=== PATIENT | male | born 1985 | race Two or more races ===

== ENCOUNTER 2019-09-26 12:23 | Emergency (ER) | payer SELFPAY ==
[~2019-09-26] VITALS: Ht 180.3 cm; Wt 83.0 kg
[2019-09-26 12:28] VITALS: BP 157/84
[2019-09-26] MEDS ORDERED: IV NORMAL SALINE 1,000ML 1,000 ML IV ONE (12:45)
[2019-09-26] MEDS ORDERED: ONDANSETRON PF 4 MG/2 ML VIAL. IVP ONE (12:45)
[2019-09-26] MEDS ORDERED: IOHEXOL 300 MG/ML 75 ML VIAL. IV ONE ×2 (12:45)
[2019-09-26 13:05] LABS: BASO # 0.1 x10^3/uL (0.0-0.2); BASO % 1 % (0-3); EOS # 0.2 x10^3/uL (0.0-0.7); EOS % 3 % (0-3); HEMATOCRIT 33.5 % (39.0-53.0); HEMOGLOBIN 10.6 g/dL (13.0-17.5); LYMPH # 2.1 x10^3/uL (1.0-4.8); LYMPH % 31 % (24-48); MEAN CORPUSCULAR HEMOGLOBIN 22 pg (25-35); MEAN CORPUSCULAR HGB CONC 32 g/dL (31-37); MEAN CORPUSCULAR VOLUME 70 fL (79-100); MONO # 0.5 x10^3/uL (0.0-1.1); MONO % 8 % (0-9); NEUT # 3.8 x10^3uL (1.8-7.7); NEUT % 57 % (31-73); PLATELET COUNT 395 x10^3/uL (140-400); RED BLOOD COUNT 4.82 x10^6/uL (4.30-5.70); RED CELL DISTRIBUTION WIDTH 17.5 % (11.5-14.5); WHITE BLOOD COUNT 6.7 x10^3/uL (4.0-11.0)
[2019-09-26 13:18] LABS: CALCIUM 8.4 mg/dL (8.5-10.1); GFR 85.5; POTASSIUM 3.4 mmol/L (3.5-5.1)
[2019-09-26 13:22] LABS: ALBUMIN 3.7 g/dL (3.4-5.0); TOTAL BILIRUBIN 0.5 mg/dL (0.2-1.0); TOTAL PROTEIN 7.5 g/dL (6.4-8.2)
--- NOTE | 2019-09-26 13:42 | RAD ---
Examination: CT ABD PELV W/ IV CONTRST ONLY History: Reason: hematochezia, hx of "cancerous" polyps / Spl. Instructions: / History: Comparison/Correlation: None Findings: Axial images of the abdomen and pelvis were obtained following IV contrast. Sagittal and coronal reformatted were provided. Lung bases are clear. Liver, spleen, pancreas, adrenal glands, and right kidney are normal. Left renal superior pole low-attenuation lesion measuring 0.7 in diameter probably represents a cyst. No hydronephrosis. No ascites or pelvic free fluid. Appendix is normal. No bowel obstruction or extraluminal gas. No inflammatory findings. No enlarged abdominal or pelvic lymph nodes. No ascites or pelvic free fluid. Urinary bladder is unremarkable. No extraluminal gas. Bone islands involve the left iliac bone near the sacroiliac joint. Impression: No inflammatory processes identified. If GI bleed is a persistent concern, consider further characterization or other assessment. Very small to characterize lesion involving the left kidney which probably represents a cyst. Interval follow-up with MRI in 6 months is recommended to assess stability. PQRS Compliance Statement: One or more of the following individualized dose reduction techniques were utilized for this examination: 1. Automated exposure control 2. Adjustment of the mA and/or kV according to patient size 3. Use of iterative reconstruction technique Electronically signed by: Jewel Love MD (09/26/2019 1:39 PM) [id number]
[2019-09-26] MEDS ORDERED: HYDR25SU18 RC (13:50)
--- NOTE | 2019-09-26 13:51 | PHYS DOC ---
General Adult EDM: Chief Complaint: RECTAL BLEED HPI: HPI: Patient is a [age] year old [sex] who presents with [] Review of Systems: Review of Systems: Constitutional: Denies fever or chills Eyes: Denies redness or eye pain HENT: Denies nasal congestion or sore throat Respiratory: Denies cough or shortness of breath Cardiovascular: Denies chest pain or palpitations GI: Denies abdominal pain, nausea, or vomiting : Denies dysuria or hematuria Musculoskeletal: Denies back pain or joint pain Integument: Denies rash or skin lesions Neurologic: Denies headache, focal weakness or sensory changes Complete systems were reviewed and found to be within normal limits, except as documented in this note. Current Medications: Current Meds: Current Medications Medications (Trade) Dose Ordered Sig/Maury Start Time Stop Time Status Last Admin Dose Admin Iohexol (Omnipaque 300 Mg/ml) 75 ml 1X ONCE 09/26/19 12:45 09/26/19 13:00 DC Ondansetron HCl (Zofran) 4 mg 1X ONCE 09/26/19 12:45 09/26/19 13:00 DC 09/26/19 12:45 4 MG Sodium Chloride 1,000 ml @ 1,000 mls/hr 1X ONCE 09/26/19 12:45 09/26/19 13:44 DC 09/26/19 12:50 1,000 MLS/HR Allergies: Allergies: Allergies Coded Allergies Type Severity Reaction Last Updated Verified No Known Drug Allergies 09/26/19 No Physical Exam: PE: Constitutional: Well developed, well nourished, no acute distress, non-toxic appearance HENT: Normocephalic, atraumatic, oropharynx moist Eyes: PERRL, EOMI, conjunctiva normal, no discharge Neck: Normal range of motion, no tenderness, supple Cardiovascular: Heart rate normal, regular rhythm Lungs & Thorax: Bilateral breath sounds clear to auscultation, no wheezing Abdomen: Soft, no tenderness Skin: Warm, dry, no erythema, no rash Back: No tenderness, no CVA tenderness Extremities: No tenderness, ROM intact, no edema Neurologic: Alert and oriented X 3, normal motor function, normal sensory function, no focal deficits noted Psychologic: Affect normal, judgment normal Current Patient Data: Labs: Laboratory Tests Test 09/26/19 12:47 White Blood Count 6.7 x10^3/uL (4.0-11.0) Red Blood Count 4.82 x10^6/uL (4.30-5.70) Hemoglobin 10.6 g/dL (13.0-17.5) L Hematocrit 33.5 % (39.0-53.0) L Mean Corpuscular Volume 70 fL (79-100) L Mean Corpuscular Hemoglobin 22 pg (25-35) L Mean Corpuscular Hemoglobin Concent 32 g/dL (31-37) Red Cell Distribution Width 17.5 % (11.5-14.5) H Platelet Count 395 x10^3/uL (140-400) Neutrophils (%) (Auto) 57 % (31-73) Lymphocytes (%) (Auto) 31 % (24-48) Monocytes (%) (Auto) 8 % (0-9) Eosinophils (%) (Auto) 3 % (0-3) Basophils (%) (Auto) 1 % (0-3) Neutrophils # (Auto) 3.8 x10^3uL (1.8-7.7) Lymphocytes # (Auto) 2.1 x10^3/uL (1.0-4.8) Monocytes # (Auto) 0.5 x10^3/uL (0.0-1.1) Eosinophils # (Auto) 0.2 x10^3/uL (0.0-0.7) Basophils # (Auto) 0.1 x10^3/uL (0.0-0.2) Platelet Estimate Pending Prothrombin Time 10.2 SEC (9.4-11.4) Prothrombin Time INR 1.0 (0.9-1.1) Activated Partial Thromboplast Time 25 SEC (23-33) Sodium Level 138 mmol/L (136-145) Potassium Level 3.4 mmol/L (3.5-5.1) L Chloride Level 104 mmol/L (98-107) Carbon Dioxide Level 25 mmol/L (21-32) Anion Gap 9 (6-14) Blood Urea Nitrogen 10 mg/dL (8-26) Creatinine 1.0 mg/dL (0.7-1.3) Estimated GFR (Cockcroft-Gault) 85.5 BUN/Creatinine Ratio 10 (6-20) Glucose Level 96 mg/dL (70-99) Calcium Level 8.4 mg/dL (8.5-10.1) L Magnesium Level 2.0 mg/dL (1.8-2.4) Total Bilirubin 0.5 mg/dL (0.2-1.0) Aspartate Amino Transferase (AST) 16 U/L (15-37) Alanine Aminotransferase (ALT) 16 U/L (16-63) Alkaline Phosphatase 78 U/L (46-116) Total Protein 7.5 g/dL (6.4-8.2) Albumin 3.7 g/dL (3.4-5.0) Albumin/Globulin Ratio 1.0 (1.0-1.7) Lipase 171 U/L (73-393) EKG: EKG: [] Radiology/Procedures: Radiology/Procedures: PROCEDURE: CT ABD PELV W/ IV CONTRST ONLY Examination: CT ABD PELV W/ IV CONTRST ONLY History: Reason: hematochezia, hx of "cancerous" polyps / Spl. Instructions: / History: Comparison/Correlation: None Findings: Axial images of the abdomen and pelvis were obtained following IV contrast. Sagittal and coronal reformatted were provided. Lung bases are clear. Liver, spleen, pancreas, adrenal glands, and right kidney are normal. Left renal superior pole low-attenuation lesion measuring 0.7 in diameter probably represents a cyst. No hydronephrosis. No ascites or pelvic free fluid. Appendix is normal. No bowel obstruction or extraluminal gas. No inflammatory findings. No enlarged abdominal or pelvic lymph nodes. No ascites or pelvic free fluid. Urinary bladder is unremarkable. No extraluminal gas. Bone islands involve the left iliac bone near the sacroiliac joint. Impression: No inflammatory processes identified. If GI bleed is a persistent concern, consider further characterization or other assessment. Very small to characterize lesion involving the left kidney which probably represents a cyst. Interval follow-up with MRI in 6 months is recommended to assess stability. PQRS Compliance Statement: One or more of the following individualized dose reduction techniques were utilized for this examination: 1. Automated exposure control 2. Adjustment of the mA and/or kV according to patient size 3. Use of iterative reconstruction technique Electronically signed by: Jewel Love MD (09/26/2019 1:39 PM) [id number] Course & Med Decision Making: Course & Med Decision Making Pertinent Labs and Imaging studies reviewed. (See chart for details) Patient stable for discharge with outpatient follow-up with PCP. Discussed findings and plan with patient and family, who acknowledge understanding and agreement. Amy Disclaimer: Amy Disclaimer: This electronic medical record was generated, in whole or in part, using a voice recognition dictation system. Departure Departure: Impression: Primary Impression: Rectal bleeding Disposition: HOME/RESIDENCE PRIOR TO ADM Condition: STABLE Referrals: PCP,KRISHAN (PCP) CARMEN CALLE MD Patient Instructions: Rectal Bleeding, [id number] Scripts Hydrocortisone Acetate (ANUSOL-HC) 25 Mg Supp.rect 1 SUPP RC BID PRN for Rectal bleeding for 7 Days, #14 SUPP 0 Refills Prov: NISH MOTLEY DO 09/26/19 Justification of Admission: Justification of Admission: Justification of Admission Dx: N/A NISH MOTLEY DO Sep 26, 2019 13:51
[2019-09-26 14:45] LABS: PLT ESTIMATE ADEQUATE (ADEQUATE)
[2019-09-26 15:26] LABS: OVALOCYTES FEW
[2019-09-26 15:29] LABS: TARGET CELLS OCC; TEAR DROP CELLS OCC
[2019-09-26 15:34] LABS: ANISOCYTOSIS PRESENT; MICROCYTOSIS PRESENT
[2019-09-26 15:35] LABS: HYPOCHROMIA PRESENT
== END 2019-09-26 14:05 | disposition home or self-care (01) ==
LOC: ER 12:23
DX: K62.5 Hemorrhage of anus and rectum (principal)
CPT/HCPCS: 36415; 74177; 80053; 83690; 83735; 85025; 85610; 85730; 96374; 99285; J2405; J7030; Q9967